=== PATIENT | male | born 1985 | race Caucasian/White ===

== ENCOUNTER 2022-04-07 13:43 | Outpatient (CLI) | payer OTHER ==
[2022-04-07 14:31] VITALS: BP 140/80
--- NOTE | 2022-04-07 14:31 | SLEEP CARE CONSULTATION ---
Information from patient questionnaire entered by Valerie Booth. I have reviewed and concur with the information entered by Valerie Booth. This document represents the service I personally performed and the decisions made by me, Pallavi Weber ARNP. History of Present Illness Service Date and Time: 04/07/2022 1343 Reason for Visit: New patient, Previously diagnosed sleep apnea Chief Complaint: reports: Snoring, Observed pauses in breathing Date of Onset: ENTIRE ADULT LIFE Usual bedtime: 10PM - 7AM Time it takes to fall asleep: 3 MINUTES Snores at night: Yes Observed to quit breathing while asleep: Yes Sleeps alone due to snoring: No Number of times waking at night: 2-3 Reasons for waking at night: reports: Bathroom, Other (UNCOMFORTABLENESS ) Toss, Turn, or Twitch while sleeping: Yes Recalls having dreams: Yes Usually gets out of bed at: BEFORE 8AM, USUALLY 6AM Feels refreshed in the morning: Yes Morning headache: No Sleepy or fatigued during the day: Yes Ever fallen asleep while driving: Yes Takes day naps: Yes (2 times a week for 1-3 hours) Dreams during day naps: Yes Prior sleep studies: Yes Year and Where: [facility] 05/28/2020, [facility] 12/08/16 Type of Sleep Study: Polysomnography Additional HPI information: I had the pleasure of seeing JORDI CHILDERS today regarding the possibility of him having a sleep disorder. His current complaints are snoring and observed pauses in breathing. He has had sleep studies in the past. In 2016 he completed a PSG and was found to have an AHI of 6.1, mild obstructive sleep apnea. In 2019, his PSG test showed AHI of 30.9, severe obstructive sleep apnea. After his last PSG, an order was written for him to start CPAP therapy. He was then moved out of the area by the [place] and was unable to start therapy for his sleep apnea. He returns to a sleep provider today to try and follow-up on his sleep apnea. He continues to have snoring and daytime sleepiness. He states he can feel rested in the morning. He experiences night terrors twice a week and will take naps a couple of times a week as well. 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 Patient is and lives in . Have you smoked in the past 12 months: No Alcohol use: Yes Alcohol amount and frequency: 1 BEER A WEEKEND Caffeine use: Yes Caffeine amount and frequency: 1 COFFEE A DAY Family History Family history of sleep disordered breathing: Yes Family Hx Sleep Apnea: Mother: Snoring, Sleep apnea - Untreated, Father: Snoring, Sleep apnea - Untreated, Sibling: Snoring, Grandparent: Snoring Allergies and Home Medications Known drug allergies: No Drug allergies reviewed: Yes Home medication list reviewed: Yes (no daily medications) Review of Systems Cardiovascular: denies: high blood pressure Neurological: denies: head trauma Ear/Nose/Throat: reports: nasal congestion, wisdom teeth removed. denies: tonsillectomy Endocrine: denies: thyroid disease Musculoskeletal: reports: back pain Immunologic: reports: allergies to food or environment (seasonal allergies) Physical Exam Vital signs obtained and entered by: BLACKMAN MA Blood Pressure: 140/80 (RIGHT ARM ) Cuff size: regular Heart Rate: 72 O2 Saturation: 97 Height: 5 ft 7 in Weight: 199 lb Body Mass Index: 31.1 BMI Classification: Obese Neck circumference: 17 (INCHES) Mouth and throat: narrow oropharynx Soft palate: long Hard palate: normal Uvula: normal, long Uvula visualization: 25% Mallampati Class III Tongue: enlarged in size with teeth ott on lateral edges Tonsils: small Neck: normal w/o lymphadenopathy or thyromegaly Heart: regular rate and rhythm Lungs: clear bilaterally Impression and Plan 1. Suspected Obstructive Sleep Apnea-Hypopnea Syndrome, as previously diagnosed and as still suggested by a history of loud and irregular snoring, observed cessation of breath while asleep, and excessive daytime sleepiness. Narrow oropharynx and obesity are common predisposing factors for obstructive sleep apnea-hypopnea syndrome. I recommend proceeding to polysomnography to confirm the diagnosis and to assess severity. If the patient has significant sleep disordered breathing, a manual CPAP titration study will also be performed to find the optimal treatment pressure. I informed the patient of what the sleep studies involve and after some discussion, obtained agreement to proceed. The pathophysiology of obstructive sleep apnea-hypopnea syndrome was discussed with the patient and health risks of cardiovascular and cerebrovascular disease if not treated. Risks of drowsy driving discussed in detail and patient advised to avoid long distance driving and to ear pull machine operator at the first sign of drowsiness. Patient agreed to plan. * Schedule polysomnography * Avoid long distance driving or driving when feeling sleepy. * Avoid alcohol, sedative and muscle relaxant around bedtime. * Attempt to lose weight. * Review instructions provided by trained office staff on how to prepare for the sleep study. * Return for follow-up after sleep study completed. Counseling Topics: Weight loss health impact Visit Type: In Office Time Spent with Patient (minutes): 30 Provider Statement: I spent 100% of the Face to Face Visit with the patient with greater than 50% spent counseling the patient and coordination of care.
== END 2022-04-07 13:44 | disposition home or self-care (01) ==
LOC: SC 13:43
PROVIDERS: ATTEND Nurse Practitioner Family
DX: G47.33 Obstructive sleep apnea (adult) (pediatric) (principal); E66.9 Obesity, unspecified; Z68.31 Body mass index [BMI] 31.0-31.9, adult
CPT/HCPCS: 99203; 99212

== ENCOUNTER 2023-08-24 14:11 | Outpatient (CLI) | payer OTHER ==
--- NOTE | 2023-08-24 14:50 | Sleep Patient Instructions ---
Sleep Center Visit Summary - Patient Visit Information Reason for Visit: Annual visit - Patient Instructions Instructions Attached: Sleep Study Additional Instructions: You will be completing a sleep study, either an in-lab polysomnography (PSG) or home sleep study (HST). You will follow-up in the sleep care office after the sleep study is completed to hear the results and talk about therapy, if needed. You will be called by our office staff to schedule this appointment, but you may contact us with any questions. - Clinic Information Contact: [facility] [address] [place] [id number] [email or web address] T: [phone]
--- NOTE | 2023-08-24 14:55 | SLEEP CARE CONSULTATION ---
Information from patient questionnaire entered by Yessi Peterson. I have reviewed and concur with the information entered by Yessi Peterson. This document represents the service I personally performed and the decisions made by me, Pallavi Weber ARNP. History of Present Illness Service Date and Time: 08/24/2023 1411 Previous diagnosis: Severe, Obstructive Sleep Apnea-Hypopnea Syndrome AHI: 30.9 (in 2019) Reason for follow up: annual (LAST SEEN 03/2022 NEVER DID STUDY) Prior sleep studies: Yes Year and Where: [facility] 05/28/2020, [facility] 12/08/16 Type of Sleep Study: Polysomnography HPI additional information: I had the pleasure of seeing JORDI CHILDERS today regarding the possibility of him having a sleep disorder. His current complaints are snoring, observed pauses in breathing and excessive daytime sleepiness. The patient tells me that he normally goes to bed around 1030 pm, and it takes him approximately 10 minutes to fall asleep. He has been told that he snores loudly and irregularly at night. He has not been observed to stop breathing in his sleep. His bed partner can still sleep in the same bed. He can recall waking up on the average of 1-2 times during the night. Most of the time he wakes up because of bathroom needs. He has occasionally awakened having to gasp for air and dry throat. There is a lot of tossing and turning in his sleep. Generally he can recall having dreams. He usually wakes up at 0600 and feels refreshed. He usually does not have a morning headache. During the day he complains of feeling sleepy and fatigued. He has never fallen asleep while driving nor has any accident due to sleepiness. He usually does take naps during the day. About 2 naps a week for 30 minutes. If he naps, upon falling asleep during the day he admits to having vivid dreams. There is no somniloquy (sleep talking) or somnambulism (sleep walking). He has never experienced sleep paralysis, cataplexy, or symptoms of restless leg syndrome. He denies having impaired concentration during the day. Sleep Study - Results Type of Sleep Study: Polysomnography Prior sleep studies: Yes Year and Where: [facility] 05/28/2020, [facility] 12/08/16 Subjective Initial [place] Sleepiness Scale score: 14 (04/06/22) Current [place] Sleepiness Scale score: 7 (08/24/23) Allergies and Home Medications Known drug allergies: No Drug allergies reviewed: Yes Home medication list reviewed: Yes (no changes) Review of Systems Review of systems same as previous: Yes (NO CHANGE) Physical Exam Vital signs obtained and entered by: YESSI Thao MA Blood Pressure: 132/81 (LEFT ARM) Cuff size: regular Heart Rate: 74 O2 Saturation: 98 Height: 5 ft 7 in Weight: 195 lb 3.2 oz Body Mass Index: 30.5 BMI Classification: Obese Impression and Plan 1. Suspected Obstructive Sleep Apnea-Hypopnea Syndrome, as previously diagnosed and as suggested by a history of loud and irregular snoring, frequent awakening during the night, and excessive daytime sleepiness. He was last seen in 03/2022 and a sleep study was ordered but he was deployed and unable to complete the sleep study. He has a history of sleep apnea as seen in 2019, severe SANTI with AHI of 30.9. He was deploy after that study and unable to get set up with treatment. He returns today to get on therapy for his sleep apnea. I recommend proceeding to polysomnography to confirm the diagnosis and to assess severity. I obtained agreement to proceed. The pathophysiology of obstructive sleep apnea- hypopnea syndrome was discussed with the patient and health risks of cardiovascular and cerebrovascular disease if not treated. Risks of drowsy driving discussed in detail and patient advised to avoid long distance driving and to insole tack puller hand at the first sign of drowsiness. Patient agreed to plan. 2. Obesity, unspecified. Currently patients BMI is 30.5. Obesity increases the risk of apnea, CPAP pressure requirements and overall health risks especially cardiovascular and diabetes. Thus patient is advised to lose weight. * Schedule polysomnography * Avoid long distance driving or driving when feeling sleepy. * Avoid alcohol, sedative and muscle relaxant around bedtime. * Attempt to lose weight. * Review instructions provided by trained office staff on how to prepare for the sleep study. * Return for follow-up after sleep study completed. Counseling Topics: Weight loss health impact Plan: PSG Visit Type: In Office Time Spent with Patient (minutes): 20 Provider Statement: I spent 100% of the Face to Face Visit with the patient with greater than 50% spent counseling the patient and coordination of care.
[2023-08-24 15:03] VITALS: BP 132/81; O2SAT 98
== END 2023-08-24 14:12 | disposition home or self-care (01) ==
LOC: SC 14:11
PROVIDERS: ATTEND Nurse Practitioner Family
DX: G47.33 Obstructive sleep apnea (adult) (pediatric) (principal); E66.9 Obesity, unspecified; Z68.30 Body mass index [BMI] 30.0-30.9, adult
CPT/HCPCS: 99212; 99213

== ENCOUNTER 2023-09-15 20:36 | Outpatient (CLI) | payer OTHER | END 2023-09-15 20:37 | disposition home or self-care (01) | LOC: SC 20:36 | PROVIDERS: ATTEND Nurse Practitioner Family | DX: G47.33 Obstructive sleep apnea (adult) (pediatric) (principal); E66.9 Obesity, unspecified; Z68.30 Body mass index [BMI] 30.0-30.9, adult | CPT/HCPCS: 95810 ==

== ENCOUNTER 2023-09-20 15:48 | Outpatient (CLI) | payer OTHER ==
--- NOTE | 2023-09-20 15:24 | Sleep Patient Instructions ---
Sleep Center Visit Summary - Patient Visit Information Reason for Visit: Sleep study followup - Patient Instructions Additional Instructions: You are being started on CPAP therapy with pressure setting at 4-15 cmH2O. You will need to call the sleep care office to set up your follow up once you have your APAP machine and we will schedule a visit to check compliance and response to therapy at that time. You may call the office with any concerns about pressure feeling too low or too much for adjustment, if needed. You should contact DME supplier for any questions or concerns about mask or equipment. Please call office to schedule a follow up appointment in the sleep care office one month after obtaining new device. - Clinic Information Contact: [facility] [address] [place] [address] [email or web address] T: [phone]
--- NOTE | 2023-09-20 15:26 | SLEEP CARE CONSULTATION ---
Information from patient questionnaire entered by Yessi Peterson. I have reviewed and concur with the information entered by Yessi Peterson. This document represents the service I personally performed and the decisions made by me, Pallavi Weber ARNP. History of Present Illness Service Date and Time: 09/20/2023 1520 Initial [place] Sleepiness Scale score: 14 (04/06/22) Current [place] Sleepiness Scale score: 7 (09/20/23) Additional HPI information: JORDI CHILDERS returns for follow up and results of the recently performed polysomnography. The sleep study showed severe obstructive sleep apnea with an average AHI of 42.7 and [place] oxygen saturation of 80%. I explained the pathophysiology behind obstructive sleep apnea. We then spent quite a bit of time discussing different treatment options. For mild obstructive sleep apnea, surgery and oral appliance are alternatives to nasal CPAP therapy but in moderate or severe cases, nasal CPAP is the most effective and reliable treatment. Because apnea is primarily in supine position, then positional management therapy could be effective. Methods discussed such as positioning with pillows, using a T-shirt with tennis balls in the back or commercial products that have a pillow format on back to prevent supine sleep. I reviewed the impact of weight changes on sleep apnea and strongly recommended losing weight. After some discussion, the patient opted to go with the nasal CPAP therapy. Nasal autoCPAP set at 4-15 cmH20 will be ordered with rationale explained. A manual titration study will be ordered if unable to find optimal pressure with office adjustments. I explained how CPAP machine works and what to expect when using the machine. Using CPAP every night in order to get used to it was emphasized. Patient advised to put CPAP mask on before getting into bed so as n ot to fall asleep without CPAP. To assist acclimation to CPAP use, it could also be used for a short time during day while reading or watching TV. The patient was instructed to call the CPAP supplier to discuss any mechanical problem that may occur. If the mask given is uncomfortable or is difficult to keep on through the night even with adjustment, contact the CPAP supplier as many will replace with another mask style if notified before 30 days. If snoring or perceives is not getting enough air or too much air from the machine, notify this office. Patient counseled not drink alcohol less than 4 hours before bedtime as it can increase snoring and apnea. Patient was cautioned about risks of drowsy driving until sleepiness symptoms resolve. Patient denies drowsy driving. Sleep Study - Results Type of Sleep Study: Polysomnography (COMPLETED 09/15/23) Prior sleep studies: Yes Year and Where: [facility] 05/28/2020, [facility] 12/08/16 Polysomnography/Home Sleep Study results: IMPRESSION: The quality of the study is good. The patient had normal sleep efficiency. The sleep architecture was abnormal for sleep fragmentation and reduced amount of time spent in slow wave sleep (N3). Respiratory monitoring showed severe obstructive sleep apnea-hypopnea (AHI = 42.7) associated with frequent arousals, oxyhemoglobin desaturation and mild hypoxia ([place] oxygen saturation of 80%). The respiratory events occurred almost exclusively during supine sleep (supine AHI = 64.8; non-supine = 4.97). Snore was light to very loud in intensity. There was no significant periodic leg movement of sleep. Cardiac rhythm was normal sinus rhythm without significant arrhythmia. No abnormal behavior (parasomnia) observed during the night. Allergies and Home Medications Known drug allergies: No Drug allergies reviewed: Yes Home medication list reviewed: Yes (no changes) Allergy and home medication list: Allergies No Known Drug Allergies Allergy (Verified 09/20/23 08:33) Review of Systems Review of systems same as previous: Yes (NO CHANGE) Physical Exam Vital signs obtained and entered by: YESSI Thao MA Blood Pressure: 139/87 (LEFT ARM) Cuff size: regular Heart Rate: 77 O2 Saturation: 98 Height: 5 ft 8 in Weight: 198 lb 9.6 oz Body Mass Index: 30.2 BMI Classification: Obese Impression and Plan 1. Obstructive Sleep Apnea-Hypopnea Syndrome, severe, with lowest oxygen satura tion of 80%. Obviously this is the cause of the patients symptoms of unrefreshed sleep, and excessive daytime sleepiness. After discussing options, including surgical options for SANTI, the patient will be started on nasal autoCPAP therapy with pressure set at 4-15 cmH2O. A manual titration study will be completed if unable to find optimal treatment pressure with office adj ustments. Compliance guidelines also reviewed. A copy of compliance guidelines will be given for reference at check out. Because the apnea is more severe supine, I instructed to avoid sleeping supine using pillow positioning until able to start CPAP use. 2. Hypoxemia, mild, with a [place] oxygen saturation of 80% and 21.9 minutes spent under 90%. The baseline oxygen saturation was normal with an average oxygen saturation of 94%. 3. Obesity, unspecified. Currently patients BMI is 30.2. Obesity increases the risk of apnea, CPAP pressure requirements and overall health risks especially cardiovascular and diabetes. Thus patient is advised to lose weight. * Nasal auto CPAP therapy, pressure at 4-15 cm H2O. * Attempt to lose weight. * Avoid alcohol consumption near bedtime. * Avoid supine sleep until using CPAP. * The patient is again cautioned about driving until sleepiness completely resolves. * Return one month after CPAP obtained. I will assess response to therapy and compliance at that time. Counseling Topics: Weight loss health impact Prescriptions: Auto CPAP Follow up with Sleep Care in: other (compliance follow up) Visit Type: In Office Time Spent with Patient (minutes): 25 Provider Statement: I spent 100% of the Face to Face Visit with the patient with greater than 50% spent counseling the patient and coordination of care.
[2023-09-20 15:30] VITALS: BP 139/87; O2SAT 98
== END 2023-09-20 15:49 | disposition home or self-care (01) ==
LOC: SC 15:48
PROVIDERS: ATTEND Nurse Practitioner Family
DX: G47.33 Obstructive sleep apnea (adult) (pediatric) (principal); R09.02 Hypoxemia; E66.9 Obesity, unspecified; Z68.30 Body mass index [BMI] 30.0-30.9, adult
CPT/HCPCS: 99212; 99213

== ENCOUNTER 2023-12-13 10:50 | Outpatient (CLI) | payer OTHER ==
--- NOTE | 2023-12-13 11:28 | Sleep Patient Instructions ---
Sleep Center Visit Summary - Patient Visit Information Reason for Visit: First compliance follow-up - Patient Instructions Additional Instructions: You were here for follow up of CPAP therapy. You will be continued on CPAP therapy with pressure at 6-9 cmH2O. Please let us know if the pressure change is uncomfortable and we can make further adjustments of the pressure. I have added an order for a [employer] comfort accessory to help reduce feel of pressure without reducing pressure being used. You can find these online if your supplier does not have them in stock. You should follow up with sleep care in 1-2 months. You may contact us sooner for any questions or concerns. - Clinic Information Contact: [facility] [address] [place] [email or web address] T: [phone]
--- NOTE | 2023-12-13 11:36 | SLEEP CARE CONSULTATION ---
Information from patient questionnaire entered by Neo Peterson. I have reviewed and concur with the information entered by Neo Peterson. This document represents the service I personally performed and the decisions made by , Pallavi Weber ARNP. History of Present Illness Service Date and Time: 12/13/2023 1050 Previous diagnosis: Severe, Obstructive Sleep Apnea-Hypopnea Syndrome AHI: 42.7 (09/15/23; 30.9 in 2019) Reason for follow up: first compliance Equipment type: CPAP (RESMED 11 S/U 10/02/23) Equipment obtained from: [facility] ([facility]; getting supplies) Mask style: Nasal pillows Mask brand: Respironics Backup mask available: No (will keep old mask when replaced) Last cushion change: 2 weeks Prior sleep studies: Yes Year and Where: [facility] 05/28/2020, [facility] 12/08/16 Type of Sleep Study: Polysomnography (COMPLETED 09/15/23) HPI additional information: JORDI CHILDERS was diagnosed to have severe, AHI 42.7, obstructive sleep apnea- hypopnea syndrome and returned today for CPAP therapy first compliance follow- up. Sleep Study - Results Type of Sleep Study: Polysomnography (COMPLETED 09/15/23) Prior sleep studies: Yes Year and Where: [facility] 05/28/2020, [facility] 12/08/16 CPAP Compliance Data - Data Reviewed with Patient Average duration of nightly device use: 5 HRS 32 MINS Compliance rate %: 33 (11/10/23-12/09/23; 07/22 days used) Current pressure setting (cmH2O): 4-15 (median 6, avg 7.8, max 9.1) Average residual AHI: 2.0 Central apnea: 0.6 Obstructive apnea: 1 Hypopnea: 0.4 Average large leak: 1 L/min Subjective Missed days of use due to: reports: other (kids sleeping in same bed, pulling on hose) Patient concerns: reports: mask discomfort (minor), mask leak noise, dry mouth, nose, throat (improving), other (furniture distance/height). denies: aerophagia, air blowing in eyes, condensation in mask/hose, nasal congestion, epistaxis Observed to snore while using device: No Current pressure setting perceived as: comfortable On therapy, patient: reports: sleeping better, awakening more refreshed, more rested overall. denies: drowsiness while driving Initial [place] Sleepiness Scale score: 14 (04/06/22) Current [place] Sleepiness Scale score: 11 (12/13/23) Allergies and Home Medications Known drug allergies: No Drug allergies reviewed: Yes Home medication list reviewed: Yes (no changes) Allergy and home medication list: Allergies No Known Drug Allergies Allergy (Verified 12/11/23 09:59) Review of Systems Review of systems same as previous: Yes (NO CHANGE) Physical Exam Vital signs obtained and entered by: NEO Thao MA Blood Pressure: 142/83 (LEFT ARM) Cuff size: regular Heart Rate: 68 O2 Saturation: 98 Height: 5 ft 8 in Weight: 193 lb 9.6 oz Body Mass Index: 29.4 BMI Classification: Overweight Impression and Plan 1. Obstructive Sleep Apnea-Hypopnea Syndrome, severe, with fair treatment compliance and good apnea control. On CPAP therapy, the patient has better sleep quality and is more rested overall. His compliance has been affected by his children sleeping with he and his . They will pull on the tubing. He will also wake up about 4 AM and just take off to sleep last couple hours without it. Compliance guidelines reviewed for insurance coverage. Patient was counseled on the difference between meeting compliance and optimal use of CPAP. Optimal use of CPAP is use of CPAP with all sleep to obtain maximum benefit of treatment. Patient is encouraged to use CPAP with all sleep. He says when he puts the mask on initially, the pressure feels hard to breathe with and he has to control his breathing. He hoped that the pressure could be turned down. I explained that the pressure cannot be lower than 4 cmH2O. I will order a V-com comfort adaptor to help reduce pressure feeling without reducing pressure settings. The patients pressure will be changed to autoCPAP 6-9 cmH20 to reflect pressure being used for control of sleep apnea. Patient advised to contact me if pressure change is uncomfortable so that it can be adjusted. Goals for apnea control discussed. Patient's apnea severity and rationale for treatment to reduce apnea, improve sleep quality and reduce cardiovascular and cerebrovascular events was reviewed. 2. Overweight, unspecified. Currently patients BMI is 29.4. Obesity increases the risk of apnea, CPAP pressure requirements and overall health risks especially cardiovascular and diabetes. Thus patient is advised to lose weight. * Change auto CPAP pressure to 6-9 cmH2O * V-[employer] comfort accessory * Notify me if snoring with mask or feeling that the pressure is too much or too little * Attempt to lose weight * Call this office if any problems using CPAP * Return for follow up in 1-2 months, or sooner if concerns arise Adjust device pressure to (cmH2O): 6-9 Counseling Topics: Spare mask, Weight loss health impact Follow up with Sleep Care in: 1-2 months Visit Type: In Office Time Spent with Patient (minutes): 22 Provider Statement: I spent 100% of the Face to Face Visit with the patient with greater than 50% spent counseling the patient and coordination of care.
[2023-12-13 11:46] VITALS: BP 142/83; O2SAT 98
== END 2023-12-13 10:51 | disposition home or self-care (01) ==
LOC: SC 10:50
PROVIDERS: ATTEND Nurse Practitioner Family
DX: G47.33 Obstructive sleep apnea (adult) (pediatric) (principal); E66.3 Overweight; Z68.29 Body mass index [BMI] 29.0-29.9, adult
CPT/HCPCS: 99212; 99213